=== PATIENT | female | born 1955 | race Caucasian/White ===

== ENCOUNTER 2022-12-06 07:29 | Emergency (ER) | payer OTHER ==
[~2022-12-06] VITALS: Ht 162.6 cm; Wt 90.7 kg
== END 2022-12-06 12:18 | disposition home or self-care (01) ==
LOC: ER 07:29
DX: S79.911A Unspecified injury of right hip, initial encounter (principal); W19.XXXA Unspecified fall, initial encounter; Y93.9 Activity, unspecified; Y92.091 Bathroom in other non-institutional residence as the place of occurrence of the external cause; Y99.9 Unspecified external cause status